=== PATIENT | female | born 1975 | race Caucasian/White ===

== ENCOUNTER 2018-03-01 08:04 | Outpatient (CLI) | payer BC | END 2018-03-01 08:05 | disposition home or self-care (01) | LOC: BICMAMMO 08:04 | PROVIDERS: ATTEND Family Medicine | DX: Z12.31 Encounter for screening mammogram for malignant neoplasm of breast (principal) | CPT/HCPCS: 77063; 77067 ==

== ENCOUNTER 2018-11-26 15:37 | Outpatient (CLI) | payer BC ==
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
== END 2018-11-26 15:38 | disposition home or self-care (01) ==
LOC: BICRAD 15:37
PROVIDERS: ATTEND Chiropractor Sports Physician
DX: M47.22 Other spondylosis with radiculopathy, cervical region (principal); M48.02 Spinal stenosis, cervical region
CPT/HCPCS: 72050

== ENCOUNTER 2019-01-15 08:58 | Outpatient (CLI) | payer BC ==
--- NOTE | 2019-01-15 12:00 | MRI ---
MRI CERVICAL SPINE WITH AND WITHOUT CONTRAST: HISTORY: Severe neck pain that radiates into the right shoulder with stabbing pain down the right arm. Burning sensation. COMPARISON: None. TECHNIQUE: Cervical spine MRI is performed with and without intravenous gadolinium administration. Multisequenti al, multiplanar imaging is performed FINDINGS: Appropriate T1 marrow signal intensity of the cervical vertebrae. Cervical spine vertebral body heigh t is maintained. No fracture. No significant STIR hyperintensity to suggest vertebral body edema or ligamentous injury. Post contrast images do not demonstrate any abnormal enhancement with regard to the cervical vertebra e. The visualized brain parenchyma, cervicomedullary junction, cervical cord and the upper thoracic cord have a normal size and signal intensity. No abnormal enhancement. There is an asymmetrically enlarged enhancing focus in the right thyroid lobe, incompletely evaluated . Non-emergent thyroid ultrasound is recommended. C2-C3: Broad based disc osteophyte complex with a right paracentral component. Mild central canal angy nosis along the right aspect of the central spinal canal. Mild right neural foraminal narrowing due to right uncovertebral hypertrophy. Left neural foramen is patent. C3-C4: No significant central canal stenosis. Mild right neural foraminal narrowing due to uncoverteb ral hypertrophy. Moderate to severe left foraminal narrowing due to uncovertebral hypertrophy. C4-C5: No significant central canal stenosis. Minimal bilateral neural foraminal narrowing due to unc overtebral hypertrophy. C5-C6: No significant central canal stenosis. Minimal bilateral neural foraminal narrowing due to unc overtebral hypertrophy. C6-C7: No significant central canal stenosis. Minimal right foraminal narrowing due to uncovertebral hypertrophy. Left neural foramen is patent. C7-T1: No significant central canal stenosis. Bilaterally neural foramina are patent. IMPRESSION: 1. Broad based disc osteophyte complex at C2-C3. Mild central canal stenosis. 2. Mild right neural foraminal narrowing and moderate to severe left neural foraminal narrowing at C3 -C4. Transcribed Date/Time: 01/15/2019 12:28 PM
== END 2019-01-15 08:59 | disposition home or self-care (01) ==
LOC: BICMRI 08:58
PROVIDERS: ATTEND Family Medicine
DX: M54.2 Cervicalgia (principal); M48.02 Spinal stenosis, cervical region; M25.78 Osteophyte, vertebrae
CPT/HCPCS: 72156

== ENCOUNTER 2019-02-06 15:14 | Outpatient (CLI) | payer BC ==
--- NOTE | 2019-02-06 16:11 | ULT ---
THYROID ULTRASOUND INDICATION: Right thyroid nodule TECHNIQUE: Grayscale and color Doppler images were obtained of the thyroid gland. COMPARISON: None FINDINGS: Right thyroid lobe: The right thyroid lobe measures 5.7 x 1.5 x 1.6 cm. There is a solid, hypoechoic, lobulated, taller than wide nodule within the superior pole of the right thyroid lobe measuring 1.3 x 2.0 x 1.6 cm. Thyroid isthmus: The thyroid isthmus measures 0.27 cm. Left thyroid lobe: The left thyroid lobe measures 5.5 x 1.1 x 1.1 cm. IMPRESSION: 1. TIRADS category 5: Highly suspicious. Recommend ultrasound-guided FNA. There is a large hypoechoic solid nodule within the right thyroid lobe. This lesion is suspicious by TIRADS criteria. Ultrasound-guided FNA is recommended.
== END 2019-02-06 15:15 | disposition home or self-care (01) ==
LOC: BICULT 15:14
PROVIDERS: ATTEND Family Medicine
DX: E04.1 Nontoxic single thyroid nodule (principal)
CPT/HCPCS: 76536

== ENCOUNTER 2019-02-26 15:32 | Outpatient (CLI) | payer BC ==
--- NOTE | 2019-02-26 16:32 | MRI ---
MR OF THE RIGHT SHOULDER WITHOUT CONTRAST 02/26/19 INDICATION: Right shoulder injury and pain. COMPARISON: None. FINDINGS: Small amount of fluid is seen within the subacromial subdeltoid bursa. There is mild tendinosis of th e supraspinatus. No full thickness tear is evident. There is intratendinous delamination involving th e cranial subscapularis measuring 1.8 x 0.3 cm on image 11 of series 3. Biceps tendon is located. Gle nohumeral articular surface is normal appearing. The anterior inferior glenohumeral ligamentous compl ex appears intact. Biceps anchor complex is intact. AC joint is normal appearing. There is a type II acromion. No os acromiale is evident. No muscular atrophy is noted. No bone marrow signal abnormality is noted. No lymphadenopathy is evident. IMPRESSION: 1. Mild tendinosis of the supraspinatus. 2. 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 3. Small amount of fluid in the subacromial, subdeltoid bursa suspicious for underlying bursitis . POS: OFF
== END 2019-02-26 15:33 | disposition home or self-care (01) ==
LOC: TBSIIMAG 15:32
PROVIDERS: ATTEND Specialist
DX: M67.911 Unspecified disorder of synovium and tendon, right shoulder (principal); S46.911A Strain of unspecified muscle, fascia and tendon at shoulder and upper arm level, right arm, initial encounter; M75.81 Other shoulder lesions, right shoulder

== ENCOUNTER 2019-02-27 08:36 | Outpatient (CLI) | payer BC ==
--- NOTE | 2019-02-27 09:05 | RAD ---
XR Shoulder Rt 3 View STANDARD HISTORY: Right shoulder pain, rotator cuff disorder FINDINGS: No fracture or dislocation is identified.
== END 2019-02-27 08:37 | disposition home or self-care (01) ==
LOC: BICRAD 08:36
PROVIDERS: ATTEND Specialist
DX: M67.911 Unspecified disorder of synovium and tendon, right shoulder (principal)
CPT/HCPCS: 36415; 84439; 84443; 84481; 86376; 86800

== ENCOUNTER 2019-09-25 08:07 | Outpatient (CLI) | payer BC ==
--- NOTE | 2019-09-25 08:42 | ULT ---
Exam: Thyroid ultrasound HISTORY: Hypothyroidism COMPARISON: 02/06/2019 FINDINGS: Thyroid isthmus: 2.4 cm Right thyroid lobe: 1.7 x 1.6 x 4.7 cm Left thyroid lobe: 1.5 x 1.3 x 4.1 cm Thyroid nodules: Right thyroid lobe: Irregular solid nodule in the midpole the right thyroid lobe measures 1.6 x 1.3 x 1.2 cm. Previously, this nodule measured 1.3 x 2.0 x 1.6. Left thyroid lobe: Hypoechoic nodule measures 0.2 x 0.2 x 0.3 IMPRESSION: 1. Solid irregular nodule in the mid right thyroid lobe. 2. TI-RADS level: TR 4, moderately suspicious. Fine-needle aspiration has been performed in the past. Correlate with previous FNA. As a conservative measure, follow-up imaging in one year.
== END 2019-09-25 08:08 | disposition home or self-care (01) ==
LOC: SCSULT 08:07
PROVIDERS: ATTEND Internal Medicine Endocrinology, Diabetes & Metabolism
DX: E04.1 Nontoxic single thyroid nodule (principal); E03.9 Hypothyroidism, unspecified
CPT/HCPCS: 36415; 76536; 84439; 84443; 84480; 86376

== ENCOUNTER 2020-07-14 16:45 | Outpatient (CLI) | payer BC | END 2020-07-14 16:46 | disposition home or self-care (01) | LOC: SCSRAD 16:45 | PROVIDERS: ATTEND Family Medicine | DX: M54.5 Low back pain (principal) | CPT/HCPCS: 72072; 72100; 72220 ==

== ENCOUNTER 2020-11-30 15:17 | Outpatient (CLI) | payer BC | END 2020-11-30 15:18 | disposition home or self-care (01) | LOC: BICULT 15:17 | PROVIDERS: ATTEND Internal Medicine Endocrinology, Diabetes & Metabolism | DX: E04.1 Nontoxic single thyroid nodule (principal) | CPT/HCPCS: 76536 ==